=== PATIENT | female | born 1950 | race Caucasian/White ===

== ENCOUNTER 2016-07-27 19:22 | Emergency (ER) | payer OTHER ==
[~2016-07-27] VITALS: Ht 167.6 cm; Wt 80.0 kg
[~2016-07-27 19:22] MED LIST: CYCL-36 PO; FENO54TA PO; LEVO50TA4 PO; PERC2.5T PO; PERC5TAB12 PO
[2016-07-27 19:38] VITALS: BP 147/81; PULSE 92; RESP 18; TEMP 98.4; O2SAT 99
[2016-07-27] MEDS ORDERED: FENO54TA PO (19:53)
[2016-07-27] MEDS ORDERED: LEVO50TA4 PO (19:53)
[2016-07-27] MEDS ORDERED: PERC5TAB12 PO (19:53)
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
[2016-07-27] MEDS ORDERED: oxyCODONE/ACETAMINOPHEN 5 MG/325 MG TAB PO ONE (20:15)
[2016-07-27] MEDS ORDERED: KETOROLAC TROMETHAMINE 60 MG/2 ML (IM) VIAL IM ONE (20:15)
[2016-07-27] MEDS ORDERED: HYDR-3533 PO (20:45)
[2016-07-27] MEDS ORDERED: ORPH100T99 PO (20:45)
[2016-07-27] MEDS ORDERED: PRED20 PO (20:45)
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
== END 2016-07-27 21:03 | disposition home or self-care (01) ==
LOC: PHEFT 19:22
DX: M54.5 Low back pain (principal); E78.00 Pure hypercholesterolemia, unspecified; K21.9 Gastro-esophageal reflux disease without esophagitis; Z87.442 Personal history of urinary calculi; E03.9 Hypothyroidism, unspecified; V43.52XA Car driver injured in collision with other type car in traffic accident, initial encounter; Y93.89 Activity, other specified; Y92.410 Unspecified street and highway as the place of occurrence of the external cause
CPT/HCPCS: 72110; 96372; 99284; J1885

== ENCOUNTER 2016-10-20 13:15 | Emergency (ER) | payer OTHER ==
[~2016-10-20] VITALS: Ht 167.6 cm; Wt 80.0 kg
[~2016-10-20 13:15] MED LIST changes: -CYCL-36 PO; +HYDR-3533 PO; +ORPH100T99 PO; -PERC2.5T PO; +PRED20 PO
[2016-10-20 13:29] VITALS: BP 133/72; PULSE 111; RESP 16; TEMP 99; O2SAT 97
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
[2016-10-20] MEDS ORDERED: DULO1CAP3 PO (13:55)
[2016-10-20] MEDS ORDERED: OXYC1CAP PO (13:55)
[2016-10-20] MEDS ORDERED: BUPR150CR PO (13:55)
[2016-10-20] MEDS ORDERED: CYCL1TAB29 PO (13:55)
[2016-10-20] MEDS ORDERED: PRED50 PO (13:56)
[2016-10-20] MEDS ORDERED: KETOROLAC TROMETHAMINE 60 MG/2 ML (IM) VIAL IM ONE (14:00)
== END 2016-10-20 14:14 | disposition home or self-care (01) ==
LOC: PHEFT 13:15
DX: M54.5 Low back pain (principal)
CPT/HCPCS: 96372; 99284; J1885